=== PATIENT | male | born 1950 | race Caucasian/White ===

== ENCOUNTER 2017-05-04 17:42 | Emergency (ER) | payer SELFPAY ==
[2011-03-12 13:02] VITALS: BMI 17.1
[2017-05-04 20:40] LABS: BASOPHILS 0.9 % (0-2); EOSINOPHILS 2.6 % (0-7); HEMATOCRIT 43.1 % (42.0-54.0); HEMOGLOBIN 14.9 g/dL (13.5-17.5); IMMATURE GRANULOCYTES 0.4 % (0-5); LYMPHOCYTES 50.6 % (15-50); MCH 32.5 pg (26.0-34.0); MCHC 34.6 g/dL (31.0-37.0); MCV 93.9 fL (80.0-100.0); MEAN PLATELET VOLUME 9.3 fL (7.4-10.4); MONOCYTES 5.2 % (2-11); NEUTROPHILS 40.3 % (40-80); RBC 4.59 10x6/uL (4.20-6.10); WBC 7.6 10x3/uL (4.8-10.8)
[2017-05-04 20:42] LABS: PLATELET COUNT 261 10x3/uL (130-400)
[2017-05-04 20:49] LABS: INR 0.94 (0.85-1.17); PROTIME 12.2 SECONDS (11.6-15.0)
[2017-05-04 20:56] LABS: ALKALINE PHOSPHATASE 107 U/L (46-116); ALT (SGPT) 19 U/L (10-68); BILIRUBIN - TOTAL 0.31 mg/dL (0.2-1.3); CALC OSMOLALITY 253 mosm/kg (275-300); CALCIUM 8.7 mg/dL (8.5-10.1); CARBON DIOXIDE 24.5 mmol/L (21.0-32.0); CHLORIDE - SERUM 93 mmol/L (98-107); CREATININE - SERUM 0.8 mg/dL (0.6-1.3); GLUCOSE 80 mg/dL (74-106); POTASSIUM - SERUM 3.6 mmol/L (3.5-5.1); PROTEIN - SERUM 8.4 g/dL (6.4-8.2); SODIUM 129 mmol/L (136-145); UREA NITROGEN 2 mg/dL (7-18); eGFR NON AFRICAN AMERICAN > 90 mL/min (90-120)
== END 2017-05-04 23:30 | disposition home or self-care (01) ==
LOC: D.ER 17:42
PROVIDERS: Nurse Practitioner Family
DX: S00.03XA Contusion of scalp, initial encounter (principal); W19.XXXA Unspecified fall, initial encounter; Y93.89 Activity, other specified; Y92.89 Other specified places as the place of occurrence of the external cause; S16.1XXA Strain of muscle, fascia and tendon at neck level, initial encounter

== ENCOUNTER 2017-10-16 19:40 | Emergency (ER) | payer SELFPAY ==
[~2017-10-16] VITALS: Ht 175.3 cm; Wt 45.4 kg
[2017-10-16 19:42] VITALS: Ht 175.3 cm; Wt 45.4 kg
[2017-10-16 20:14] LABS: BASOPHILS 2.2 % (0-2); EOSINOPHILS 4.3 % (0-7); HEMATOCRIT 39.1 % (42.0-54.0); HEMOGLOBIN 13.6 g/dL (13.5-17.5); LYMPHOCYTES 39.5 % (15-50); MCH 32.9 pg (26.0-34.0); MCHC 34.8 g/dL (31.0-37.0); MCV 94.4 fL (80.0-100.0); MEAN PLATELET VOLUME 9.7 fL (7.4-10.4); MONOCYTES 11.6 % (2-11); NEUTROPHILS 42.4 % (40-80); PLATELET COUNT 249 10x3/uL (130-400); RBC 4.14 10x6/uL (4.20-6.10); RDW 12.9 % (11.5-14.5); WBC 6.2 10x3/uL (4.8-10.8)
[2017-10-16 20:22] LABS: APTT 28.5 SECONDS (22.8-39.4); INR 1.02 (0.85-1.17); PROTIME 13.1 SECONDS (11.6-15.0)
[2017-10-16 20:24] LABS: D-DIMER-QUANTITATIVE 0.55 ug/mLFEU (0.20-0.54)
[2017-10-16 20:29] LABS: ALBUMIN 3.6 g/dL (3.4-5.0); ALKALINE PHOSPHATASE 79 U/L (46-116); ALT (SGPT) 20 U/L (10-68); BILIRUBIN - TOTAL 0.22 mg/dL (0.2-1.3); CALC OSMOLALITY 275 mosm/kg (275-300); CALCIUM 8.5 mg/dL (8.5-10.1); CARBON DIOXIDE 29.5 mmol/L (21.0-32.0); CHLORIDE - SERUM 103 mmol/L (98-107); CREATININE - SERUM 1.1 mg/dL (0.6-1.3); GLUCOSE 103 mg/dL (74-106); POTASSIUM - SERUM 4.2 mmol/L (3.5-5.1); SODIUM 138 mmol/L (136-145); UREA NITROGEN 13 mg/dL (7-18); eGFR NON AFRICAN AMERICAN 70 mL/min (90-120)
[2017-10-16 20:41] LABS: C-REACTIVE PROTEIN < 0.2 mg/dL (0.0-0.9); CKMB 1.7 U/L (0.0-3.6); CREATINE KINASE 93 UL (21-232); MAGNESIUM - SERUM 2.2 mg/dL (1.8-2.4); THYROID STIMULATING HORMONE 2.98 uIU/mL (0.36-3.74); TROPONIN-I < 0.017 ng/mL (0.000-0.060)
[2017-10-17 01:10] VITALS: BP 128/96
== END 2017-10-17 01:12 | disposition other institution (70) ==
LOC: D.ER 19:40
PROVIDERS: Family Medicine
DX: I63.9 Cerebral infarction, unspecified (principal); G81.91 Hemiplegia, unspecified affecting right dominant side; R20.2 Paresthesia of skin; R42 Dizziness and giddiness; R41.0 Disorientation, unspecified; Z85.118 Personal history of other malignant neoplasm of bronchus and lung; F17.200 Nicotine dependence, unspecified, uncomplicated

== ENCOUNTER 2019-06-07 13:38 | Inpatient (IN) | payer MEDICARE ==
[~2019-06-07] VITALS: Ht 175.3 cm; Wt 79.5 kg
[2019-06-07 13:59] LABS: BASOPHILS 0.5 % (0-2); EOSINOPHILS 1.4 % (0-7); HEMATOCRIT 38.9 % (42.0-54.0); IMMATURE GRANULOCYTES 0.4 % (0-5); LYMPHOCYTES 14.1 % (15-50); MCH 30.6 pg (26.0-34.0); MCHC 30.8 g/dL (31.0-37.0); MCV 99.2 fL (80.0-100.0); MEAN PLATELET VOLUME 9.3 fL (7.4-10.4); MONOCYTES 9.1 % (2-11); NEUTROPHILS 74.5 % (40-80); PLATELET COUNT 245 10x3/uL (130-400); RBC 3.92 10x6/uL (4.20-6.10); WBC 17.5 10x3/uL (4.8-10.8)
[2019-06-07 14:07] LABS: ANION GAP 16.1 mmol/L (8-16); CALCIUM 8.7 mg/dL (8.5-10.1); CREATININE - SERUM 2.2 mg/dL (0.6-1.3); POTASSIUM - SERUM 4.1 mmol/L (3.5-5.1)
[2019-06-07 14:08] VITALS: BP 105/60
[2019-06-07 14:15] LABS: ALBUMIN 3.6 g/dL (3.4-5.0); BILIRUBIN - TOTAL 0.27 mg/dL (0.2-1.3); PROTEIN - SERUM 7.7 g/dL (6.4-8.2)
[2019-06-07] MEDS ORDERED: ASPIRIN325 MG PO (14:19)
[2019-06-07] MEDS ORDERED: LIPITOR80 MG PO (14:19)
[2019-06-07] MEDS ORDERED: DONEPEZIL HCL10 MG PO (14:21)
[2019-06-07] MEDS ORDERED: VITAMIN B-12500 MCG PO (14:21)
[2019-06-07] MEDS ORDERED: REMERON15 MG PO (14:22)
[2019-06-07] MEDS ORDERED: ELDERTONIC PO (14:22)
[2019-06-07] MEDS ORDERED: LISINOPRIL2.5 MG PO (14:22)
[2019-06-07] MEDS ORDERED: SENNA LAXATIVE8.6 MG PO (14:23)
[2019-06-07] MEDS ORDERED: ZOLOFT100 MG PO (14:23)
[2019-06-07 16:00] VITALS: BP 105/60
--- NOTE | 2019-06-07 16:39 | NUR ---
REPORT TO MARCOS SWEET
[2019-06-07 16:49] VITALS: BP 121/66
--- NOTE | 2019-06-07 16:50 | NUR ---
TRANSPORTED TO ROOM #2226, CONDITION STABLE
[2019-06-07 16:58] LABS: APTT 31.4 SECONDS (22.8-39.4); PROTIME 13.2 SECONDS (11.6-15.0)
--- NOTE | 2019-06-07 17:25 | NUR ---
PATIENT SITTING UP IN BED EATING AT THIS TIME. NO COMPLAINTS OR SIGNS OF DISTRESS. IV INTACT. CALL LIGHT WITHIN REACH.
--- NOTE | 2019-06-07 18:15 | NUR ---
PATIENT ASSESSED AND CHANGED. INCONTINENT OF BOWEL. IV INTACT. CALL LIGHT WITHIN REACH. VS STABLE.
[2019-06-07 18:29] VITALS: Ht 175.3 cm; Wt 79.5 kg
[2019-06-07 20:00] VITALS: BP 120/62
[2019-06-08] VITALS: BP 129/81
--- NOTE | 2019-06-08 01:43 | NUR ---
REC'D CHGE OF SHIFT WALKING ROUNDS INCONTINENT LGE LOOSE BM COMPLETE BATH AND LINEN CHGE GIVEN. DENIES PAIN AT PRESENT TIME. WILL CONTINUE TO MONITOR FOR ANY CHGES AND FOLLOW CURRENT PLAN OF CARE.
[2019-06-08 04:00] VITALS: BP 98/51
--- NOTE | 2019-06-08 06:00 | NUR ---
I have reviewed this patient and I concur with the Shift Assessment completed by the Licensed Practical Nurse today this shift.
[2019-06-08 07:02] LABS: ANION GAP 15.5 mmol/L (8-16); CALCIUM 8.2 mg/dL (8.5-10.1); CARBON DIOXIDE 21.7 mmol/L (21.0-32.0); CREATININE - SERUM 1.3 mg/dL (0.6-1.3); MAGNESIUM - SERUM 1.9 mg/dL (1.8-2.4); POTASSIUM - SERUM 4.2 mmol/L (3.5-5.1)
--- NOTE | 2019-06-08 07:41 | NUR ---
ALERT AND ORIENTED TO SELF AND PLACE. LUNGS CLEAR BILATERALLY. HEART SOUNDS S1 AND S2 HEARD IN ALL SWIFT. BOWEL SOUNDS ACTIVE X 4. SKIN INTACT WITHOUT REDNESS. IV TO LFA PATENT WITHOUT REDNESS. DENIES PAIN. DENIES NEEDS. BED LOW. CALL DELGADO AND PERSONAL ITEMS IN REACH. WILL CONTINUE TO MONITOR.
[2019-06-08 07:51] LABS: BASOPHILS 0.2 % (0-2); EOSINOPHILS 0 % (0-7); HEMATOCRIT 33.8 % (42.0-54.0); HEMOGLOBIN 10.6 g/dL (13.5-17.5); IMMATURE GRANULOCYTES 0.4 % (0-5); LYMPHOCYTES 6.1 % (15-50); MCHC 31.4 g/dL (31.0-37.0); MCV 98.8 fL (80.0-100.0); MEAN PLATELET VOLUME 10.1 fL (7.4-10.4); MONOCYTES 6.7 % (2-11); NEUTROPHILS 86.6 % (40-80); PLATELET COUNT 215 10x3/uL (130-400); RBC 3.42 10x6/uL (4.20-6.10); RDW 13.7 % (11.5-14.5); WBC 18.1 10x3/uL (4.8-10.8)
[2019-06-08 08:49] VITALS: BP 103/57
--- NOTE | 2019-06-08 09:04 | NUR ---
BLOOD CONTINUES TRANSFUSING. VITALS REMAIN STABLE. WILL CONTINUE TO MONITOR.
--- NOTE | 2019-06-08 10:04 | NUR ---
CHINYERE QUEVEDO NOTIFIED THAT ER UNABLE TO OBTAIN URINE FROM PATIENT D/T UNABLE TO PLACE IN AND OUT CATH OR COUDE CATH. PATIENT INCONTINENT. STATES TO PLACE UROLOGY CONSULT. CONSULT PLACED.
--- NOTE | 2019-06-08 10:26 | NUR ---
BLADDER SCAN PERFORMED. 586ML NOTED AFTER MULTIPLE SCANS BY TWO NURSES. CHINYERE GOFF NOTIFIED. STATES ATTEMPT TO PLACE [address] WITH COUDE AGAIN AND IF UNSUCCESSFUL TO CONSULT SURGERY.
--- NOTE | 2019-06-08 10:42 | NUR ---
ATTEMPTED TO PLACE COUDE WITH TWO NURSES. UNABLE TO PLACE. SURGERY CONSULT PLACED BY AZAEL QUEVEDO. CALLED BY ARNOLDO DIAZ.
--- NOTE | 2019-06-08 12:00 | NUR ---
SPOKE WITH DR OLIVA AND CHINYERE GOFF. MD STATES ATTEMPT TO PLACE [address]. AWARE THAT NURSE HAS BEEN UNABLE TO PLACE [address] AND COUDE. ATTEMPTED TO PLACE [address] WITH SECOND NURSE. UNABLE TO PLACE. AND CHINYERE ALSO UNABLE TO PLACE. STATES TO PLACE CONDOM CATH. CONDOM CATH PLACED.
[2019-06-08 12:17] VITALS: BP 105/63
--- NOTE | 2019-06-08 12:24 | MORECARE ---
CASE MANAGEMENT DISCHARGE SUMMARY PATIENT: MYNOR YANES UNIT: [id number] ADM DATE: 06/07/19 AGE: 68 : 48 SEX: M ROOM/BED: D.2226 AUTHOR: FABIO STARR PHYSICIAN: REFERRING PHYSICIAN: SHELBI BEE MD DATE OF SERVICE: 06/08/19 Discharge Plan Patient Name: MYNOR YANES [facility] [facility] 1950 Planned Disposition: Anticipated Discharge Date: Discharge Date: Expected LOS: Initial Reviewer: [id number] Initial Review Date: 06/07/2019 Generated: 06/08/19 1:24 pm External Providers External Provider: [facility] Next Contact Date: Service Request Date: Service Type: Resolution: Reviewer: Comments: Patient Name: MYNOR YANES Page [phone] at 1224 All edits/amendments must be made on the electronic document DICTATION DATE: 06/08/19 1224 CAN WORKER: PARMINDER 06/08/19 1224 RPT#: [id number] DC DATE: STATUS: ADM IN [facility] [address] [place] [address] END OF REPORT
--- NOTE | 2019-06-08 12:31 | MORECARE ---
CASE MANAGEMENT DISCHARGE SUMMARY PATIENT: MYNOR YANES UNIT: [id number] ADM DATE: 06/07/19 AGE: 68 : 48 SEX: M ROOM/BED: D.2226 AUTHOR: FABIO STARR PHYSICIAN: REFERRING PHYSICIAN: SHELBI BEE MD DATE OF SERVICE: 06/08/19 Discharge Plan Patient Name: MYNOR YANES [facility] [facility] 1950 Planned Disposition: Anticipated Discharge Date: Discharge Date: Expected LOS: Initial Reviewer: [email or web address] Initial Review Date: 06/07/2019 Generated: 06/08/19 1:31 pm Comments DCP- Discharge Planning Updated by [email or web address]: Elida Flowers on 06/08/19 11:[address] I HAVE INITIATED THE TRANSFER, I HAVE SPOKE WITH [facility]. I HAVE ALSO SPOKE WITH THE [facility]. Last DP export: 06/08/19 11:24 a Patient Name: MYNOR YANES Page [phone] at 1231 All edits/amendments must be made on the electronic document DICTATION DATE: 06/08/19 1231 RIG MANAGER: PARMINDER 06/08/19 1231 RPT#: [id number] DC DATE: STATUS: ADM IN [facility] [address] [place] [address] END OF REPORT
--- NOTE | 2019-06-08 13:58 | NUR ---
SPOKE WITH TRANSFER CENTER. WAITING ACCEPTANCE TO [facility] IN [place] PER PATIENT REQUEST.
--- NOTE | 2019-06-08 14:41 | MORECARE ---
CASE MANAGEMENT DISCHARGE SUMMARY PATIENT: MYNOR YANES UNIT: [id number] ADM DATE: 06/07/19 AGE: 68 : 48 SEX: M ROOM/BED: D.2226 AUTHOR: FABIO STARR PHYSICIAN: REFERRING PHYSICIAN: SHELBI BEE MD DATE OF SERVICE: 06/08/19 Discharge Plan Patient Name: MYNOR YANES [facility] [facility] 1950 Planned Disposition: Anticipated Discharge Date: Discharge Date: Expected LOS: Initial Reviewer: [email or web address] Initial Review Date: 06/07/2019 Generated: 06/08/19 3:40 pm Comments DCP- Discharge Planning Updated by [email or web address]: Elida Flowers on 06/08/19 1:[address] PATIENT HAS BEEN ACCEPTED TO [facility] BY DR BRIZUELA. DR OLIVA HAS DONE THE DOC TO DOC DCP- Discharge Planning Updated by [email or web address]: Elida Flowers on 06/08/19 11:[address] I HAVE INITIATED THE TRANSFER, I HAVE SPOKE WITH [facility]. I HAVE ALSO SPOKE WITH THE [facility]. Last DP export: 06/08/19 11:31 a Patient Name: MYNOR YANES Page [phone] at 1441 All edits/amendments must be made on the electronic document DICTATION DATE: 06/08/19 144 PROFESSIONAL POKER PLAYER: PARMINDER 06/08/19 1440 RPT#: [id number] DC DATE: STATUS: ADM IN [facility] [address] [place] [address] END OF REPORT
[2019-06-08] MEDS ORDERED: PROTONIX40 MG PO (14:56)
[2019-06-08] MEDS ORDERED: LEVOFLOXAC500 MG/100 IV (14:56)
[2019-06-08] MEDS ORDERED: Nicoderm [PBKC] TRANSDERM (14:56)
[2019-06-08] MEDS ORDERED: FLORAJEN3 CAPS460 MG PO (14:57)
--- NOTE | 2019-06-08 15:04 | NUR ---
CONSENT FOR TRANSFER PROVIDED OVER PHONE BY PATIENT'S DAUGHTER TO TWO NURSES. DAUGHTER IS POA.
--- NOTE | 2019-06-08 15:24 | NUR ---
REPORT CALLED TO SUSAN RODRÍGUEZ AT [facility] IN [place]. DENIES QUESTIONS. CALL BACK NUMBER GIVEN IF NEEDED.
--- NOTE | 2019-06-08 16:23 | NUR ---
AMBULANCE CALLED FOR PATIENT.
--- NOTE | 2019-06-08 16:34 | NUR ---
SPOKE WITH NURSE AT [facility] ABOUT PATIENT TRANSFER. HOSPITAL FLOOR AT [facility] PHONE NUMBER GIVEN. DENIES FURTHER QUESTIONS.
[2019-06-08 17:01] VITALS: BP 140/58
--- NOTE | 2019-06-08 18:27 | NUR ---
PATIENT DC VIA EMS TO [facility].
--- NOTE | 2019-06-09 12:34 | MORECARE ---
CASE MANAGEMENT DISCHARGE SUMMARY PATIENT: MYNOR YANES UNIT: [id number] ADM DATE: 06/07/19 AGE: 68 : 48 SEX: M ROOM/BED: D.2226 AUTHOR: FABIO STARR PHYSICIAN: REFERRING PHYSICIAN: SHELBI BEE MD DATE OF SERVICE: 06/09/19 Discharge Plan Patient Name: MYNOR YANES [facility] [facility] 1950 Planned Disposition: Anticipated Discharge Date: Discharge Date: 06/08/2019 Expected LOS: Initial Reviewer: [email or web address] Initial Review Date: 06/07/2019 Generated: 06/09/19 1:33 pm Comments DCP- Discharge Planning Updated by [email or web address]: Elida Flowers on 06/08/19 1:[address] PATIENT HAS BEEN ACCEPTED TO [facility] BY DR BRIZUELA. DR OLIVA HAS DONE THE DOC TO DOC DCP- Discharge Planning Updated by [email or web address]: Elida Flowers on 06/08/19 11:[address] I HAVE INITIATED THE TRANSFER, I HAVE SPOKE WITH [facility]. I HAVE ALSO SPOKE WITH [facility]. Last DP export: 06/08/19 1:41 p Patient Name: MYNOR YANES Page [phone] at 1234 All edits/amendments must be made on the electronic document DICTATION DATE: 06/09/19 1233 LIQUOR GRINDER MILL OPERATOR: PARMINDER 06/09/19 1233 RPT#: [id number] DC DATE:06/08/19 STATUS: DIS IN [facility] [address] [facility] [place] [id number] END OF REPORT
== END 2019-06-08 18:27 | DRG 872 ==
LOC: D.ER 13:38 → D.MS 15:22
PROVIDERS: Family Medicine; ADMIT Family Medicine; ATTEND Family Medicine
DX: A41.9 Sepsis, unspecified organism (principal); N39.0 Urinary tract infection, site not specified; N17.9 Acute kidney failure, unspecified; D64.9 Anemia, unspecified